=== PATIENT | male | born 1960 | race Caucasian/White ===

== ENCOUNTER 2018-08-13 08:15 | Outpatient (CLI) | payer BC ==
--- NOTE | 2018-08-13 08:45 | RAD ---
RIGHT HIP 2 VIEWS: Date: 08/13/18 HISTORY: Right hip pain. FINDINGS/IMPRESSION: There are mild degenerative changes. No fracture, dislocation, or bony destruction is seen. POS: [facility]
== END 2018-08-13 08:16 | disposition home or self-care (01) ==
LOC: SCSRAD 08:15
PROVIDERS: ATTEND Family Medicine
DX: M25.551 Pain in right hip (principal); M16.11 Unilateral primary osteoarthritis, right hip

== ENCOUNTER 2018-10-23 12:11 | Outpatient (CLI) | payer BC ==
--- NOTE | 2018-10-23 13:18 | MRI ---
MRI Lumbar Spine WO Con HISTORY: Low back pain and right hip pain. COMPARISON: Plain film examination of the right hip dated 08/13/2018. FINDINGS: The vertebral bodies are normal in height. Disc space height appears relatively well area i n the are some mild disc desiccation changes at L2-3 and L3-4. There is no significant periaortic adenopathy. The visualized kidneys are normal. Incidental note is made of vertebral body hemangiomas of L2 T12-L1: Unremarkable. L1-2: Degenerative facet changes without canal or foraminal stenosis L2-3 minimal disc bulge and mild degenerative facet changes are seen with borderline canal narrowing no foraminal stenosis L3-4: Minimal disc bulge with some moderate facet ligaments hypertrophic change associated some borde rline to minimal canal narrowing no significant foraminal stenosis. L4-5: There is a moderate degree of canal stenosis at this level which is related to facet and ligame ntous hypertrophic change. There is also some mild to moderate left foraminal narrowing. L5-S1: Degenerative facet changes without canal or foraminal narrowing IMPRESSION: Changes as described above, the most significant of which appear to be at the L4-5 level.
== END 2018-10-23 12:12 | disposition home or self-care (01) ==
LOC: TBSIIMAG 12:11
PROVIDERS: ATTEND Neurological Surgery
DX: M54.5 Low back pain (principal); M25.551 Pain in right hip; M47.816 Spondylosis without myelopathy or radiculopathy, lumbar region; M47.817 Spondylosis without myelopathy or radiculopathy, lumbosacral region
CPT/HCPCS: 72148

== ENCOUNTER 2019-01-27 12:23 | Outpatient (CLI) | payer BC ==
[2019-01-27] MEDS ORDERED: TRIAMCINOLONE ACETONIDE IM SCH (12:45)
[2019-01-27] MEDS ORDERED: [UNRECOGNIZED DRUG - OTHER] IM SCH (12:45)
[2019-01-27] MEDS ORDERED: LIDOCAINE 1% IM SCH (12:45)
[2019-01-27] MEDS ORDERED: BUPIVACAINE 0.5% IM SCH (12:45)
--- NOTE | 2019-01-27 14:37 | RAD ---
STEROID INJECTION RIGHT HIP: INDICATIONS: The patient was referred for a steroid injection right hip due to osteoarthritis. A request was made to inject 40 mg of Kenalog into the right hip. FINDINGS: A 22 gauge spinal needle was used to enter the right hip joint under fluoroscopic guidance. Iodinated contrast was injected to confirm adequate position within the hip joint and 40 mg of Kenalog was the n injected through the 22 gauge needle. PROCEDURE IN DETAIL: The skin overlying the anterior right hip was prepped and draped in a sterile manner. Local anesthesi a was administered with Lidocaine. A 22 gauge spinal needle was used to enter the hip joint under flu oroscopic guidance. The hip joint was entered in the subcapital region of the mid femoral neck. Contr ast was injected to confirm adequate position within the hip joint and 40 mg of Kenalog was then inje cted through the needle. The needle was removed and a sterile bandage was applied. There were no prob lems or complications. POS: [facility]
== END 2019-01-27 12:24 | disposition home or self-care (01) ==
LOC: RAD 12:23
PROVIDERS: ATTEND Orthopaedic Surgery
DX: M16.11 Unilateral primary osteoarthritis, right hip (principal)
CPT/HCPCS: 20610; 77002; J2001; J3301; J3490

== ENCOUNTER 2024-03-02 13:13 | Outpatient (CLI) | payer MEDICARE | END 2024-03-02 13:14 | disposition home or self-care (01) | LOC: SCSRAD 13:13 | PROVIDERS: ATTEND Neurological Surgery | DX: M50.30 Other cervical disc degeneration, unspecified cervical region (principal); M47.812 Spondylosis without myelopathy or radiculopathy, cervical region; M25.78 Osteophyte, vertebrae; M48.02 Spinal stenosis, cervical region; M48.03 Spinal stenosis, cervicothoracic region; Z98.890 Other specified postprocedural states; Z98.1 Arthrodesis status | CPT/HCPCS: 72040 ==